=== PATIENT | female | born 1940 | race Caucasian/White ===

== ENCOUNTER 2022-03-25 16:42 | Emergency (ER) | payer MEDICARE, OTHER ==
[2022-03-25 17:24] VITALS: BP 153/53; PULSE 90
[2022-03-25] MEDS ORDERED: Sodium Chloride 0.9% 500 ML IV SCH (18:45)
[2022-03-25] MEDS: cefTRIAXone 1 GM Vial IVPUSH ONE (18:50)
[2022-03-25] MEDS: Sodium Chloride 0.9% 1,000 ML IV SCH (18:53)
== END 2022-03-25 20:10 | disposition home or self-care (01) ==
LOC: CC.ED 16:42
DX: N39.0 Urinary tract infection, site not specified (principal); E78.00 Pure hypercholesterolemia, unspecified; E11.9 Type 2 diabetes mellitus without complications; E03.9 Hypothyroidism, unspecified; E66.9 Obesity, unspecified; Z68.24 Body mass index [BMI] 24.0-24.9, adult; Z79.82 Long term (current) use of aspirin; Z79.899 Other long term (current) drug therapy; Z79.84 Long term (current) use of oral hypoglycemic drugs
CPT/HCPCS: 36415; 71046; 80053; 81001; 85025; 87086; 87088; 87186; 96374; 99283; J0696; J7030; 99284

== ENCOUNTER 2023-06-17 10:23 | Emergency (ER) | payer MEDICARE, OTHER ==
[2023-06-17 10:27] VITALS: BP 98/48; PULSE 95
[2023-06-17] MEDS: Acetaminophen 325 MG Tab PO ONE (10:43)
== END 2023-06-17 11:06 | disposition home or self-care (01) ==
LOC: CC.ED 10:23
DX: S83.91XA Sprain of unspecified site of right knee, initial encounter (principal); S80.01XA Contusion of right knee, initial encounter; E78.00 Pure hypercholesterolemia, unspecified; E66.9 Obesity, unspecified; E03.9 Hypothyroidism, unspecified; E11.9 Type 2 diabetes mellitus without complications; Z68.31 Body mass index [BMI] 31.0-31.9, adult; Z79.899 Other long term (current) drug therapy; Z79.82 Long term (current) use of aspirin; Z79.84 Long term (current) use of oral hypoglycemic drugs; X58.XXXA Exposure to other specified factors, initial encounter
CPT/HCPCS: 73562-RT; 99283; 99284; A9270-GY

== ENCOUNTER 2024-07-26 11:42 | Inpatient (IN) | payer MEDICARE, OTHER ==
[2024-07-26 12:26] LABS: BASOPHILS ABSOLUTE AUTO 0.02 10^3/uL (0.00-0.50); BASOPHILS PERCENT AUTO 0.1 % (0-1); EOSINOPHILS ABSOLUTE AUTO 0.03 10^3/uL (0.00-1.50); EOSINOPHILS PERCENT AUTO 0.2 % (0-6); HEMATOCRIT 33.1 % (37.0-47.0); IMMATURE GRAN ABSOLUTE AUTO 0.03 10^3/uL (0.00-0.49); IMMATURE GRAN PERCENT AUTO 0.2 % (0.0-4.9); LYMPHOCYTES ABSOLUTE AUTO 0.67 10^3/uL (0.60-5.00); LYMPHOCYTES PERCENT AUTO 4.9 % (24-44); MEAN CORPUSCULAR HEMOGLOBIN 31.1 pg (27.0-32.0); MEAN CORPUSCULAR HGB CONC 33.2 g/dL (32.0-36.0); MEAN CORPUSCULAR VOLUME 93.5 fL (83.0-97.0); MONOCYTES ABSOLUTE AUTO 1.32 10^3/uL (0.00-1.50); MONOCYTES PERCENT AUTO 9.6 % (0-10); NEUTROPHILS ABSOLUTE AUTO 11.73 x10^3/uL (1.80-8.00); PLATELET COUNT,PLT 239 10^3/uL (150-400); RED BLOOD CELL COUNT 3.54 x10^6/uL (4.00-5.50); WHITE BLOOD CELL COUNT,WBC 13.8 10^3/uL (4.0-11.0)
[2024-07-26] MEDS: Sodium Chloride 0.9% 1,000 ML IV ONE ×2 (12:34→14:49)
[2024-07-26 12:38] LABS: ALBUMIN 3.3 g/dL (3.4-5.0); CALCIUM 9.7 mg/dL (8.4-10.1); CREATININE 1.9 mg/dL (0.6-1.0); EST CRCL DRUG DOSING (CG) 19.13 mL/min; POTASSIUM,K 4.6 mEq/L (3.5-5.0); PROTEIN TOTAL,TP 7.5 g/dL (6.4-8.2)
[2024-07-26 12:49] LABS: BASE EXCESS VENOUS -2.5; O2 DELIVERY DEVICE ROOM AIR; PCO2 VENOUS 34.1; PH,VENOUS 7.42 (7.36-7.41); PO2 VENOUS 20.9
[2024-07-26 13:23] LABS: APPEARANCE,URINE CLOUDY (CLEAR); BILIRUBIN,URINE NEGATIVE (NEGATIVE); COLOR,URINE YELLOW (YELLOW); GLUCOSE,URINE NEGATIVE (NEGATIVE); KETONES,URINE NEGATIVE (NEGATIVE); LEUKOCYTE ESTERASE,URINE LARGE (NEGATIVE); NITRITE,URINE POSITIVE (NEGATIVE); OCCULT BLOOD,URINE MODERATE (NEGATIVE); PH,URINE 5.5 (4.5-8.0); PROTEIN,URINE 100 mg/dL (NEGATIVE); UROBILINOGEN,URINE 0.2 EU/dL (0.2-1.0)
[2024-07-26 13:28] LABS: BACTERIA,URINE FEW /HPF (NOT SEEN); EPITHELIAL CELLS,URINE FEW /HPF (NOT SEEN); MUCUS,URINE NOT SEEN /HPF (NOT SEEN); WBC,URINE >100 /HPF (0-5)
[2024-07-26] MEDS ORDERED: Polyethylene Glycol 3350 Powder 17 GM Packet PO PRN (14:35)
[2024-07-26] MEDS ORDERED: Ondansetron 4 MG/2 ML SDV IV PRN (14:35)
[2024-07-26] MEDS ORDERED: Fluticasone NASAL Spray 16 GM Bottle NASBOTH PRN (14:35)
[2024-07-26] MEDS ORDERED: Ondansetron 4 MG Tab.DIS PO PRN (14:35)
[2024-07-26] MEDS ORDERED: Loperamide 2 MG Cap PO PRN (14:35)
[2024-07-26] MEDS ORDERED: Docusate Sodium 100 MG Cap PO PRN (14:35)
[2024-07-26] MEDS: cefTRIAXone 1 GM Vial IVPUSH SCH (14:47)
[2024-07-26] MEDS: Acetaminophen 325 MG Tab PO PRN (19:28)
[2024-07-26] MEDS: Cranberry 500 MG Cap PO SCH (19:29)
[2024-07-26] MEDS: Simvastatin 40 MG Tab PO SCH (19:29)
[2024-07-26] MEDS: Beta-Carotene (Vitamin A) w/Vitamin C & E plus Minerals Tab PO SCH (19:29)
[2024-07-26] MEDS: glipiZIDE 5 MG Tab.ER PO SCH (19:30)
[2024-07-27] MEDS: Levothyroxine 150 MCG Tab PO SCH (06:08)
[2024-07-27] MEDS: Aspirin 81 MG Tab.EC PO SCH (07:33)
[2024-07-27 07:41] LABS: BASOPHILS ABSOLUTE AUTO 0.03 10^3/uL (0.00-0.50); BASOPHILS PERCENT AUTO 0.3 % (0-1); EOSINOPHILS ABSOLUTE AUTO 0.06 10^3/uL (0.00-1.50); EOSINOPHILS PERCENT AUTO 0.6 % (0-6); HEMATOCRIT 31.3 % (37.0-47.0); HEMOGLOBIN 10.3 g/dL (12.0-16.0); IMMATURE GRAN ABSOLUTE AUTO 0.03 10^3/uL (0.00-0.49); IMMATURE GRAN PERCENT AUTO 0.3 % (0.0-4.9); LYMPHOCYTES PERCENT AUTO 8.1 % (24-44); MEAN CORPUSCULAR HEMOGLOBIN 31.1 pg (27.0-32.0); MEAN CORPUSCULAR HGB CONC 32.9 g/dL (32.0-36.0); MEAN CORPUSCULAR VOLUME 94.6 fL (83.0-97.0); MONOCYTES ABSOLUTE AUTO 1.03 10^3/uL (0.00-1.50); MONOCYTES PERCENT AUTO 10.5 % (0-10); NEUTROPHILS PERCENT AUTO 80.2 % (41-71); PLATELET COUNT,PLT 197 10^3/uL (150-400); RED BLOOD CELL COUNT 3.31 x10^6/uL (4.00-5.50); WHITE BLOOD CELL COUNT,WBC 9.9 10^3/uL (4.0-11.0)
[2024-07-27 07:44] LABS: CREATININE 1.6 mg/dL (0.6-1.0); EST CRCL DRUG DOSING (CG) 22.71 mL/min; MAGNESIUM 1.9 mg/dL (1.8-2.4); POTASSIUM,K 3.8 mEq/L (3.5-5.0)
[2024-07-27] MEDS: metFORMIN 500 MG Tab PO SCH (11:51)
[2024-07-27] MEDS: Calcium Carbonate/Vitamin D3 1250 MG-5 MCG Tab PO SCH (11:51)
[2024-07-27] MEDS: Piperacillin/Tazobactam 4.5 GM in Sodium Chloride 0.9% 100 ML IV SCH (19:36)
[2024-07-27] MEDS: Enoxaparin 30 MG/0.3 ML Syringe SUBCUT SCH (19:52)
[2024-07-28 07:39] LABS: BASOPHILS ABSOLUTE AUTO 0.04 10^3/uL (0.00-0.50); BASOPHILS PERCENT AUTO 0.5 % (0-1); EOSINOPHILS PERCENT AUTO 2.6 % (0-6); HEMATOCRIT 29.1 % (37.0-47.0); HEMOGLOBIN 9.8 g/dL (12.0-16.0); IMMATURE GRAN ABSOLUTE AUTO 0.06 10^3/uL (0.00-0.49); IMMATURE GRAN PERCENT AUTO 0.8 % (0.0-4.9); LYMPHOCYTES ABSOLUTE AUTO 0.77 10^3/uL (0.60-5.00); MEAN CORPUSCULAR HGB CONC 33.7 g/dL (32.0-36.0); MEAN CORPUSCULAR VOLUME 92.1 fL (83.0-97.0); MONOCYTES ABSOLUTE AUTO 0.96 10^3/uL (0.00-1.50); MONOCYTES PERCENT AUTO 12.5 % (0-10); NEUTROPHILS ABSOLUTE AUTO 5.65 x10^3/uL (1.80-8.00); NEUTROPHILS PERCENT AUTO 73.6 % (41-71); PLATELET COUNT,PLT 229 10^3/uL (150-400); RED BLOOD CELL COUNT 3.16 x10^6/uL (4.00-5.50); WHITE BLOOD CELL COUNT,WBC 7.7 10^3/uL (4.0-11.0)
[2024-07-28 07:48] LABS: CALCIUM 9.2 mg/dL (8.4-10.1); CREATININE 1.6 mg/dL (0.6-1.0); EST CRCL DRUG DOSING (CG) 22.71 mL/min; MAGNESIUM 1.7 mg/dL (1.8-2.4); POTASSIUM,K 3.6 mEq/L (3.5-5.0)
[2024-07-29 07:18] LABS: BASOPHILS ABSOLUTE AUTO 0.06 10^3/uL (0.00-0.50); BASOPHILS PERCENT AUTO 0.7 % (0-1); EOSINOPHILS ABSOLUTE AUTO 0.27 10^3/uL (0.00-1.50); EOSINOPHILS PERCENT AUTO 3.2 % (0-6); HEMATOCRIT 29.1 % (37.0-47.0); HEMOGLOBIN 9.8 g/dL (12.0-16.0); IMMATURE GRAN ABSOLUTE AUTO 0.07 10^3/uL (0.00-0.49); IMMATURE GRAN PERCENT AUTO 0.8 % (0.0-4.9); LYMPHOCYTES ABSOLUTE AUTO 1.04 10^3/uL (0.60-5.00); LYMPHOCYTES PERCENT AUTO 12.3 % (24-44); MEAN CORPUSCULAR HEMOGLOBIN 30.7 pg (27.0-32.0); MEAN CORPUSCULAR HGB CONC 33.7 g/dL (32.0-36.0); MEAN CORPUSCULAR VOLUME 91.2 fL (83.0-97.0); MONOCYTES ABSOLUTE AUTO 1.08 10^3/uL (0.00-1.50); MONOCYTES PERCENT AUTO 12.8 % (0-10); NEUTROPHILS ABSOLUTE AUTO 5.91 x10^3/uL (1.80-8.00); NEUTROPHILS PERCENT AUTO 70.2 % (41-71); PLATELET COUNT,PLT 246 10^3/uL (150-400); RED BLOOD CELL COUNT 3.19 x10^6/uL (4.00-5.50); WHITE BLOOD CELL COUNT,WBC 8.4 10^3/uL (4.0-11.0)
[2024-07-29 07:57] LABS: CALCIUM 9.6 mg/dL (8.4-10.1); CREATININE 1.5 mg/dL (0.6-1.0); EST CRCL DRUG DOSING (CG) 24.23 mL/min; MAGNESIUM 1.6 mg/dL (1.8-2.4); POTASSIUM,K 3.6 mEq/L (3.5-5.0)
[2024-07-29 12:37] VITALS: BP 140/61; PULSE 87
== END 2024-07-29 13:16 | disposition swing bed (61) | DRG 683 ==
LOC: CC.ED 11:42 → CC.MS 13:47 → UNDOADMIN 14:11
PROVIDERS: ADMIT Nurse Practitioner; ATTEND Nurse Practitioner
DX: N17.9 Acute kidney failure, unspecified (principal); E87.20 Acidosis, unspecified; D72.9 Disorder of white blood cells, unspecified; N39.0 Urinary tract infection, site not specified; E11.9 Type 2 diabetes mellitus without complications; D72.829 Elevated white blood cell count, unspecified; B96.89 Other specified bacterial agents as the cause of diseases classified elsewhere; E78.00 Pure hypercholesterolemia, unspecified; E66.9 Obesity, unspecified; E03.9 Hypothyroidism, unspecified; D64.9 Anemia, unspecified; K59.09 Other constipation; G89.29 Other chronic pain; M54.9 Dorsalgia, unspecified; R35.0 Frequency of micturition; Z79.84 Long term (current) use of oral hypoglycemic drugs; Z79.82 Long term (current) use of aspirin; Z79.899 Other long term (current) drug therapy; Z79.890 Hormone replacement therapy; Z86.010 Personal history of colon polyps
CPT/HCPCS: 36415; 71045; 80048; 80053; 81001; 82803; 82947; 83605; 83735; 85025; 87040; 87086; 87088; 87186; 87804; 96360; 99223; 99232; 99233; 99238; 99284-25; A9270-GY; J0696; J1650; J2543; J3490; J7030; U0002

== ENCOUNTER 2024-07-29 13:24 | Inpatient (IN) | payer MEDICARE, OTHER ==
[2024-07-29] MEDS ORDERED: Acetaminophen 325 MG Tab PO PRN (13:41)
[2024-07-29] MEDS ORDERED: Fluticasone NASAL Spray 16 GM Bottle NASBOTH PRN (13:41)
[2024-07-29] MEDS ORDERED: Loperamide 2 MG Cap PO PRN (13:41)
[2024-07-29] MEDS ORDERED: Ondansetron 4 MG Tab.DIS PO PRN (13:41)
[2024-07-29] MEDS ORDERED: Ondansetron 4 MG/2 ML SDV IV PRN (13:41)
[2024-07-29] MEDS: Magnesium Chloride 64 MG Tab.ER PO SCH (16:39)
[2024-07-29] MEDS: Amoxicillin/Clavulanate K 500-125 MG Tab PO SCH (19:26)
[2024-07-29] MEDS: Simvastatin 40 MG Tab PO SCH (19:26)
[2024-07-29] MEDS: Enoxaparin 30 MG/0.3 ML Syringe SUBCUT SCH (19:26)
[2024-07-29] MEDS: Cranberry 500 MG Cap PO SCH (19:26)
[2024-07-29] MEDS: Beta-Carotene (Vitamin A) w/Vitamin C & E plus Minerals Tab PO SCH (19:26)
[2024-07-29] MEDS: glipiZIDE 5 MG Tab.ER PO SCH (19:26)
[2024-07-30] MEDS: Levothyroxine 150 MCG Tab PO SCH (06:44)
[2024-07-30] MEDS: Aspirin 81 MG Tab.EC PO SCH (07:32)
[2024-07-30] MEDS: metFORMIN 500 MG Tab PO SCH (12:02)
[2024-07-30] MEDS: Calcium Carbonate/Vitamin D3 1250 MG-5 MCG Tab PO SCH (12:02)
[2024-07-30] MEDS: Polyethylene Glycol 3350 Powder 17 GM Packet PO PRN (20:06)
[2024-07-31 08:25] LABS: APPEARANCE,URINE CLEAR (CLEAR); BILIRUBIN,URINE NEGATIVE (NEGATIVE); COLOR,URINE YELLOW (YELLOW); GLUCOSE,URINE NEGATIVE (NEGATIVE); KETONES,URINE NEGATIVE (NEGATIVE); LEUKOCYTE ESTERASE,URINE NEGATIVE (NEGATIVE); NITRITE,URINE NEGATIVE (NEGATIVE); OCCULT BLOOD,URINE NEGATIVE (NEGATIVE); PROTEIN,URINE NEGATIVE (NEGATIVE); UROBILINOGEN,URINE 0.2 EU/dL (0.2-1.0)
[2024-07-31] MEDS: Docusate Sodium 100 MG Cap PO PRN (11:52)
[2024-08-01] MEDS: Polyethylene Glycol 3350 Powder 17 GM Packet PO SCH (07:43)
[2024-08-01] MEDS: Bisacodyl 10 MG Supp RECTAL ONE (15:08)
[2024-08-02 07:51] VITALS: BP 150/64; PULSE 87
== END 2024-08-02 14:56 | disposition home health service (06) | DRG 948 ==
LOC: CC.MS 13:24 → UNDOADMIN 13:24 → CC.MS 13:41
PROVIDERS: ADMIT Nurse Practitioner; ATTEND Nurse Practitioner
DX: R53.1 Weakness (principal); N39.0 Urinary tract infection, site not specified; E87.20 Acidosis, unspecified; N17.9 Acute kidney failure, unspecified; D72.9 Disorder of white blood cells, unspecified; B96.89 Other specified bacterial agents as the cause of diseases classified elsewhere; Z79.82 Long term (current) use of aspirin; Z79.84 Long term (current) use of oral hypoglycemic drugs; Z79.899 Other long term (current) drug therapy; Z79.890 Hormone replacement therapy
CPT/HCPCS: 81003; 82947; 97110-GP; 97530-GP; 99316; A9270-GY; J1650

== ENCOUNTER 2024-12-29 09:13 | Inpatient (IN) | payer MEDICARE, OTHER ==
[2024-12-29 09:49] LABS: BASOPHILS ABSOLUTE AUTO 0.04 10^3/uL (0.00-0.50); BASOPHILS PERCENT AUTO 0.3 % (0-1); EOSINOPHILS ABSOLUTE AUTO 0.18 10^3/uL (0.00-1.50); EOSINOPHILS PERCENT AUTO 1.6 % (0-6); HEMATOCRIT 31.6 % (37.0-47.0); HEMOGLOBIN 10.4 g/dL (12.0-16.0); IMMATURE GRAN ABSOLUTE AUTO 0.08 10^3/uL (0.00-0.49); IMMATURE GRAN PERCENT AUTO 0.7 % (0.0-4.9); LYMPHOCYTES PERCENT AUTO 11.3 % (24-44); MEAN CORPUSCULAR HEMOGLOBIN 30.5 pg (27.0-32.0); MEAN CORPUSCULAR HGB CONC 32.9 g/dL (32.0-36.0); MEAN CORPUSCULAR VOLUME 92.7 fL (83.0-97.0); MONOCYTES ABSOLUTE AUTO 1.03 10^3/uL (0.00-1.50); MONOCYTES PERCENT AUTO 8.9 % (0-10); NEUTROPHILS ABSOLUTE AUTO 8.92 x10^3/uL (1.80-8.00); NEUTROPHILS PERCENT AUTO 77.2 % (41-71); PLATELET COUNT,PLT 326 10^3/uL (150-400); RED BLOOD CELL COUNT 3.41 x10^6/uL (4.00-5.50); WHITE BLOOD CELL COUNT,WBC 11.6 10^3/uL (4.0-11.0)
[2024-12-29 10:03] LABS: ALBUMIN 3.3 g/dL (3.4-5.0); BILIRUBIN TOTAL 0.7 mg/dL (0.0-1.0); CALCIUM 9.6 mg/dL (8.4-10.1); EST CRCL DRUG DOSING (CG) 19.27 mL/min; POTASSIUM,K 5.1 mEq/L (3.5-5.0); PROTEIN TOTAL,TP 7.4 g/dL (6.4-8.2)
[2024-12-29 10:26] LABS: INR 1.07 (0.92-1.18); PROTHROMBIN TIME 11.2 SEC (9.3-11.3); PTT,PARTIAL THROMBOPLSTIN TIME 25.9 SEC (20.0-30.0)
[2024-12-29] MEDS ORDERED: Acetaminophen 325 MG Tab PO PRN (10:49)
[2024-12-29] MEDS ORDERED: Polyethylene Glycol 3350 Powder 17 GM Packet PO PRN (10:49)
[2024-12-29] MEDS ORDERED: Ondansetron 4 MG/2 ML SDV IV PRN (10:49)
[2024-12-29] MEDS ORDERED: Ondansetron 4 MG Tab.DIS PO PRN (10:49)
[2024-12-29] MEDS: Sodium Chloride 0.9% 1,000 ML IV SCH (11:06)
[2024-12-29] MEDS: Calcium Carbonate/Vitamin D3 1250 MG-5 MCG Tab PO SCH (11:58)
[2024-12-29] MEDS: metFORMIN 500 MG Tab PO SCH (11:58)
[2024-12-29 13:28] LABS: APPEARANCE,URINE CLOUDY (CLEAR); BILIRUBIN,URINE NEGATIVE (NEGATIVE); COLOR,URINE YELLOW (YELLOW); GLUCOSE,URINE NEGATIVE (NEGATIVE); KETONES,URINE NEGATIVE (NEGATIVE); LEUKOCYTE ESTERASE,URINE SMALL (NEGATIVE); NITRITE,URINE POSITIVE (NEGATIVE); OCCULT BLOOD,URINE TRACE-INTACT (NEGATIVE); PH,URINE 5.5 (4.5-8.0); PROTEIN,URINE 30 mg/dL (NEGATIVE); UROBILINOGEN,URINE 0.2 EU/dL (0.2-1.0)
[2024-12-29 13:34] LABS: BACTERIA,URINE MANY /HPF (NOT SEEN); WBC,URINE >100 /HPF (0-5)
[2024-12-29] MEDS: cefTRIAXone 1 GM Vial IVPUSH SCH (13:58)
[2024-12-29] MEDS: Magnesium Oxide 400 MG Tab PO SCH (17:23)
[2024-12-29] MEDS: Simvastatin 40 MG Tab PO SCH (19:19)
[2024-12-29] MEDS: glipiZIDE 5 MG Tab.ER PO SCH (19:19)
[2024-12-29] MEDS: Docusate Sodium 100 MG Cap PO SCH (19:19)
[2024-12-30] MEDS: Levothyroxine 50 MCG Tab PO SCH (06:51)
[2024-12-30 07:36] LABS: BASOPHILS ABSOLUTE AUTO 0.05 10^3/uL (0.00-0.50); BASOPHILS PERCENT AUTO 0.5 % (0-1); EOSINOPHILS PERCENT AUTO 3.1 % (0-6); HEMATOCRIT 28.5 % (37.0-47.0); HEMOGLOBIN 9.4 g/dL (12.0-16.0); IMMATURE GRAN ABSOLUTE AUTO 0.02 10^3/uL (0.00-0.49); IMMATURE GRAN PERCENT AUTO 0.2 % (0.0-4.9); LYMPHOCYTES ABSOLUTE AUTO 1.48 10^3/uL (0.60-5.00); LYMPHOCYTES PERCENT AUTO 15.1 % (24-44); MEAN CORPUSCULAR HEMOGLOBIN 30.4 pg (27.0-32.0); MEAN CORPUSCULAR VOLUME 92.2 fL (83.0-97.0); MONOCYTES ABSOLUTE AUTO 0.95 10^3/uL (0.00-1.50); MONOCYTES PERCENT AUTO 9.7 % (0-10); NEUTROPHILS ABSOLUTE AUTO 7.01 x10^3/uL (1.80-8.00); NEUTROPHILS PERCENT AUTO 71.4 % (41-71); PLATELET COUNT,PLT 321 10^3/uL (150-400); RED BLOOD CELL COUNT 3.09 x10^6/uL (4.00-5.50); WHITE BLOOD CELL COUNT,WBC 9.8 10^3/uL (4.0-11.0)
[2024-12-30] MEDS: Multivitamins with Iron/Calcium/Folic Acid/Minerals Tab PO SCH (07:36)
[2024-12-30] MEDS: Aspirin 81 MG Tab.EC PO SCH (07:36)
[2024-12-30] MEDS: Cholecalciferol (Vitamin D3) 5,000 UNIT Tab PO SCH (07:36)
[2024-12-30] MEDS: Lactobacillus Rhamnosus GG (Probiotic) Cap PO SCH (07:36)
[2024-12-30 07:47] LABS: ALBUMIN 2.7 g/dL (3.4-5.0); BILIRUBIN TOTAL 0.4 mg/dL (0.0-1.0); C-REACTIVE PROTEIN 7.62 mg/dL (<=0.50); CALCIUM 8.7 mg/dL (8.4-10.1); CREATININE 1.6 mg/dL (0.6-1.0); EST CRCL DRUG DOSING (CG) 24.08 mL/min; POTASSIUM,K 4.4 mEq/L (3.5-5.0); PROTEIN TOTAL,TP 6.5 g/dL (6.4-8.2)
[2024-12-30] MEDS: Enoxaparin 30 MG/0.3 ML Syringe SUBCUT SCH (19:36)
[2024-12-31 07:48] LABS: BASOPHILS ABSOLUTE AUTO 0.06 10^3/uL (0.00-0.50); BASOPHILS PERCENT AUTO 0.7 % (0-1); EOSINOPHILS ABSOLUTE AUTO 0.43 10^3/uL (0.00-1.50); HEMATOCRIT 28.4 % (37.0-47.0); HEMOGLOBIN 9.2 g/dL (12.0-16.0); IMMATURE GRAN ABSOLUTE AUTO 0.02 10^3/uL (0.00-0.49); IMMATURE GRAN PERCENT AUTO 0.2 % (0.0-4.9); LYMPHOCYTES ABSOLUTE AUTO 1.46 10^3/uL (0.60-5.00); LYMPHOCYTES PERCENT AUTO 17.1 % (24-44); MEAN CORPUSCULAR HEMOGLOBIN 30.2 pg (27.0-32.0); MEAN CORPUSCULAR HGB CONC 32.4 g/dL (32.0-36.0); MEAN CORPUSCULAR VOLUME 93.1 fL (83.0-97.0); MONOCYTES PERCENT AUTO 9.3 % (0-10); NEUTROPHILS ABSOLUTE AUTO 5.79 x10^3/uL (1.80-8.00); NEUTROPHILS PERCENT AUTO 67.7 % (41-71); PLATELET COUNT,PLT 311 10^3/uL (150-400); RED BLOOD CELL COUNT 3.05 x10^6/uL (4.00-5.50); WHITE BLOOD CELL COUNT,WBC 8.6 10^3/uL (4.0-11.0)
[2024-12-31 08:07] LABS: ALBUMIN 2.6 g/dL (3.4-5.0); BILIRUBIN TOTAL 0.4 mg/dL (0.0-1.0); C-REACTIVE PROTEIN 8.42 mg/dL (<=0.50); CALCIUM 8.5 mg/dL (8.4-10.1); CREATININE 1.6 mg/dL (0.6-1.0); EST CRCL DRUG DOSING (CG) 24.08 mL/min; POTASSIUM,K 4.1 mEq/L (3.5-5.0); PROTEIN TOTAL,TP 6.5 g/dL (6.4-8.2)
[2025-01-01 08:02] LABS: BASOPHILS ABSOLUTE AUTO 0.05 10^3/uL (0.00-0.50); BASOPHILS PERCENT AUTO 0.6 % (0-1); EOSINOPHILS ABSOLUTE AUTO 0.43 10^3/uL (0.00-1.50); EOSINOPHILS PERCENT AUTO 5.3 % (0-6); HEMATOCRIT 27.6 % (37.0-47.0); HEMOGLOBIN 8.9 g/dL (12.0-16.0); IMMATURE GRAN ABSOLUTE AUTO 0.03 10^3/uL (0.00-0.49); IMMATURE GRAN PERCENT AUTO 0.4 % (0.0-4.9); LYMPHOCYTES ABSOLUTE AUTO 1.36 10^3/uL (0.60-5.00); LYMPHOCYTES PERCENT AUTO 16.9 % (24-44); MEAN CORPUSCULAR HEMOGLOBIN 30.3 pg (27.0-32.0); MEAN CORPUSCULAR HGB CONC 32.2 g/dL (32.0-36.0); MEAN CORPUSCULAR VOLUME 93.9 fL (83.0-97.0); MONOCYTES PERCENT AUTO 8.7 % (0-10); NEUTROPHILS ABSOLUTE AUTO 5.47 x10^3/uL (1.80-8.00); NEUTROPHILS PERCENT AUTO 68.1 % (41-71); PLATELET COUNT,PLT 319 10^3/uL (150-400); RED BLOOD CELL COUNT 2.94 x10^6/uL (4.00-5.50)
[2025-01-01 08:20] LABS: ALBUMIN 2.7 g/dL (3.4-5.0); BILIRUBIN TOTAL 0.3 mg/dL (0.0-1.0); C-REACTIVE PROTEIN 7.24 mg/dL (<=0.50); CALCIUM 8.8 mg/dL (8.4-10.1); CREATININE 1.5 mg/dL (0.6-1.0); EST CRCL DRUG DOSING (CG) 25.69 mL/min; POTASSIUM,K 4.4 mEq/L (3.5-5.0); PROTEIN TOTAL,TP 6.8 g/dL (6.4-8.2)
[2025-01-01] MEDS: cefTRIAXone 1 GM Vial IVPUSH SCH (11:06)
[2025-01-01 13:15] VITALS: BP 119/59; PULSE 83
== END 2025-01-01 12:30 | disposition home or self-care (01) | DRG 683 ==
LOC: CC.ED 09:13 → CC.MS 10:27 → UNDOADMOB 10:30 → CC.MS 10:30 → OBSVTOIN 12-30 08:08
PROVIDERS: ADMIT Physician Assistant Medical; ATTEND Nurse Practitioner Family
DX: N17.9 Acute kidney failure, unspecified (principal); N30.01 Acute cystitis with hematuria; R53.1 Weakness; E78.00 Pure hypercholesterolemia, unspecified; K59.09 Other constipation; G89.29 Other chronic pain; M54.9 Dorsalgia, unspecified; E11.9 Type 2 diabetes mellitus without complications; E03.9 Hypothyroidism, unspecified; Z79.890 Hormone replacement therapy; R41.0 Disorientation, unspecified; E86.0 Dehydration; Z68.23 Body mass index [BMI] 23.0-23.9, adult; F15.90 Other stimulant use, unspecified, uncomplicated; E66.9 Obesity, unspecified; D64.9 Anemia, unspecified; Z79.1 Long term (current) use of non-steroidal anti-inflammatories (NSAID); Z79.82 Long term (current) use of aspirin; Z79.899 Other long term (current) drug therapy; Z79.02 Long term (current) use of antithrombotics/antiplatelets; Z79.84 Long term (current) use of oral hypoglycemic drugs; Z87.81 Personal history of (healed) traumatic fracture; Z98.890 Other specified postprocedural states; Z87.891 Personal history of nicotine dependence
CPT/HCPCS: 36415; 70450; 80053; 81001; 85025; 85610; 85730; 86140; 87086; 87088; 87186; 93005; 93010; 96361; 96372; 96374; 96376; 97110-GP; 97161-GP; 99223; 99233; 99238; 99284; 99285; A9270-GY; G0378; J0696; J1650; J7030

== ENCOUNTER 2025-03-13 14:27 | Inpatient (IN) | payer MEDICARE, OTHER ==
[2025-03-13] MEDS ORDERED: Ondansetron 4 MG/2 ML SDV IV PRN (15:18)
[2025-03-13] MEDS: Furosemide 40 MG/4 ML VIAL IVPUSH ONE (15:22)
[2025-03-13] MEDS: Heparin Sodium 5,000 Units/ML Vial SUBCUT SCH (15:43)
[2025-03-13] MEDS: cefTRIAXone 1 GM Vial IVPUSH SCH (15:45)
[2025-03-13] MEDS: diphenhydrAMINE 25 MG Cap PO SCH (19:49)
[2025-03-13] MEDS: Beta-Carotene (Vitamin A) w/Vitamin C & E plus Minerals Tab PO SCH (19:50)
[2025-03-13] MEDS: Acetaminophen 500 MG Tab PO SCH (19:50)
[2025-03-13] MEDS: Simvastatin 40 MG Tab PO SCH (19:50)
[2025-03-13] MEDS: Vitamin B Complex Cap PO SCH (19:50)
[2025-03-14] MEDS: Levothyroxine 50 MCG Tab PO SCH (06:26)
[2025-03-14 07:14] LABS: BASOPHILS ABSOLUTE AUTO 0.07 10^3/uL (0.00-0.50); BASOPHILS PERCENT AUTO 0.6 % (0-1); EOSINOPHILS ABSOLUTE AUTO 0.32 10^3/uL (0.00-1.50); EOSINOPHILS PERCENT AUTO 2.8 % (0-6); HEMATOCRIT 29.6 % (37.0-47.0); HEMOGLOBIN 9.7 g/dL (12.0-16.0); IMMATURE GRAN ABSOLUTE AUTO 0.03 10^3/uL (0.00-0.49); IMMATURE GRAN PERCENT AUTO 0.3 % (0.0-4.9); LYMPHOCYTES ABSOLUTE AUTO 0.91 10^3/uL (0.60-5.00); MEAN CORPUSCULAR HEMOGLOBIN 30.4 pg (27.0-32.0); MEAN CORPUSCULAR HGB CONC 32.8 g/dL (32.0-36.0); MEAN CORPUSCULAR VOLUME 92.8 fL (83.0-97.0); MONOCYTES ABSOLUTE AUTO 1.08 10^3/uL (0.00-1.50); MONOCYTES PERCENT AUTO 9.4 % (0-10); NEUTROPHILS ABSOLUTE AUTO 9.02 x10^3/uL (1.80-8.00); NEUTROPHILS PERCENT AUTO 78.9 % (41-71); PLATELET COUNT,PLT 354 10^3/uL (150-400); RED BLOOD CELL COUNT 3.19 x10^6/uL (4.00-5.50); WHITE BLOOD CELL COUNT,WBC 11.4 10^3/uL (4.0-11.0)
[2025-03-14] MEDS: Cholecalciferol (Vitamin D3) 5,000 UNIT Tab PO SCH (07:19)
[2025-03-14] MEDS: Aspirin 81 MG Tab.EC PO SCH (07:19)
[2025-03-14] MEDS: Cranberry 500 MG Cap PO SCH (07:19)
[2025-03-14] MEDS: glipiZIDE 5 MG Tab.ER PO SCH (07:19)
[2025-03-14] MEDS: Furosemide 40 MG/4 ML VIAL IVPUSH SCH (07:19)
[2025-03-14 07:26] LABS: CALCIUM 8.8 mg/dL (8.4-10.1); CREATININE 1.6 mg/dL (0.6-1.0); EST CRCL DRUG DOSING (CG) 22.29 mL/min; MAGNESIUM 2.1 mg/dL (1.8-2.4); POTASSIUM,K 4.1 mEq/L (3.5-5.0)
[2025-03-14] MEDS: Magnesium Oxide 400 MG Tab PO SCH (13:09)
[2025-03-14] MEDS: metFORMIN 500 MG Tab PO SCH (13:09)
[2025-03-14] MEDS: Calcium Carbonate/Vitamin D3 1250 MG-5 MCG Tab PO SCH (13:09)
[2025-03-14] MEDS: Hypromellose 0.3% Ophth Soln 15 ML Bottle EYEBOTH SCH (13:10)
[2025-03-14] MEDS: Acetaminophen 325 MG Tab PO PRN (14:29)
[2025-03-14] MEDS: Lidocaine 4% Patch TOP SCH (20:09)
[2025-03-15 07:40] LABS: ALBUMIN 3.1 g/dL (3.4-5.0); BILIRUBIN TOTAL 0.4 mg/dL (0.0-1.0); CALCIUM 8.6 mg/dL (8.4-10.1); CREATININE 1.7 mg/dL (0.6-1.0); EST CRCL DRUG DOSING (CG) 20.98 mL/min; MAGNESIUM 2.1 mg/dL (1.8-2.4); POTASSIUM,K 3.6 mEq/L (3.5-5.0); PROTEIN TOTAL,TP 6.8 g/dL (6.4-8.2)
[2025-03-15 07:44] LABS: BASOPHILS ABSOLUTE AUTO 0.09 10^3/uL (0.00-0.50); EOSINOPHILS ABSOLUTE AUTO 0.36 10^3/uL (0.00-1.50); EOSINOPHILS PERCENT AUTO 3.9 % (0-6); HEMATOCRIT 30.9 % (37.0-47.0); IMMATURE GRAN ABSOLUTE AUTO 0.01 10^3/uL (0.00-0.49); IMMATURE GRAN PERCENT AUTO 0.1 % (0.0-4.9); LYMPHOCYTES PERCENT AUTO 13.2 % (24-44); MEAN CORPUSCULAR HEMOGLOBIN 29.8 pg (27.0-32.0); MEAN CORPUSCULAR HGB CONC 32.4 g/dL (32.0-36.0); MONOCYTES ABSOLUTE AUTO 0.91 10^3/uL (0.00-1.50); NEUTROPHILS ABSOLUTE AUTO 6.55 x10^3/uL (1.80-8.00); NEUTROPHILS PERCENT AUTO 71.8 % (41-71); PLATELET COUNT,PLT 317 10^3/uL (150-400); RED BLOOD CELL COUNT 3.36 x10^6/uL (4.00-5.50); WHITE BLOOD CELL COUNT,WBC 9.1 10^3/uL (4.0-11.0)
[2025-03-15] MEDS: Docusate Sodium 100 MG Cap PO PRN (16:34)
[2025-03-16] MEDS: Polyethylene Glycol 3350 Powder 17 GM Packet PO PRN (11:43)
[2025-03-16 16:58] LABS: BASOPHILS ABSOLUTE AUTO 0.04 10^3/uL (0.00-0.50); BASOPHILS PERCENT AUTO 0.5 % (0-1); EOSINOPHILS ABSOLUTE AUTO 0.36 10^3/uL (0.00-1.50); EOSINOPHILS PERCENT AUTO 4.3 % (0-6); HEMATOCRIT 30.3 % (37.0-47.0); HEMOGLOBIN 9.9 g/dL (12.0-16.0); IMMATURE GRAN ABSOLUTE AUTO 0.02 10^3/uL (0.00-0.49); IMMATURE GRAN PERCENT AUTO 0.2 % (0.0-4.9); LYMPHOCYTES ABSOLUTE AUTO 1.12 10^3/uL (0.60-5.00); LYMPHOCYTES PERCENT AUTO 13.5 % (24-44); MEAN CORPUSCULAR HEMOGLOBIN 29.9 pg (27.0-32.0); MEAN CORPUSCULAR HGB CONC 32.7 g/dL (32.0-36.0); MEAN CORPUSCULAR VOLUME 91.5 fL (83.0-97.0); MONOCYTES ABSOLUTE AUTO 0.92 10^3/uL (0.00-1.50); MONOCYTES PERCENT AUTO 11.1 % (0-10); NEUTROPHILS ABSOLUTE AUTO 5.82 x10^3/uL (1.80-8.00); NEUTROPHILS PERCENT AUTO 70.4 % (41-71); PLATELET COUNT,PLT 366 10^3/uL (150-400); RED BLOOD CELL COUNT 3.31 x10^6/uL (4.00-5.50); WHITE BLOOD CELL COUNT,WBC 8.3 10^3/uL (4.0-11.0)
[2025-03-16 17:07] LABS: CALCIUM 9.2 mg/dL (8.4-10.1); CREATININE 1.8 mg/dL (0.6-1.0); EST CRCL DRUG DOSING (CG) 19.81 mL/min; POTASSIUM,K 3.6 mEq/L (3.5-5.0)
[2025-03-17] MEDS: Ondansetron 4 MG Tab.DIS PO PRN (07:50)
[2025-03-17 11:03] VITALS: BP 103/73; PULSE 105
== END 2025-03-17 12:04 | disposition swing bed (61) | DRG 292 ==
LOC: CC.MS 14:27 → UNDOADMIN 14:27 → CC.MS 15:18
PROVIDERS: ADMIT Nurse Practitioner; ATTEND Nurse Practitioner
DX: I13.0 Hypertensive heart and chronic kidney disease with heart failure and stage 1 through stage 4 chronic kidney disease, or unspecified chronic kidney disease (principal); N39.0 Urinary tract infection, site not specified; I50.9 Heart failure, unspecified; Z66 Do not resuscitate; N18.9 Chronic kidney disease, unspecified; E03.9 Hypothyroidism, unspecified; E11.22 Type 2 diabetes mellitus with diabetic chronic kidney disease; E78.00 Pure hypercholesterolemia, unspecified; I45.10 Unspecified right bundle-branch block; I44.0 Atrioventricular block, first degree; K59.09 Other constipation; K82.9 Disease of gallbladder, unspecified; E66.9 Obesity, unspecified; R31.9 Hematuria, unspecified; D72.0 Genetic anomalies of leukocytes; B96.20 Unspecified Escherichia coli [E. coli] as the cause of diseases classified elsewhere; Z88.8 Allergy status to other drugs, medicaments and biological substances; Z79.82 Long term (current) use of aspirin; Z79.84 Long term (current) use of oral hypoglycemic drugs; Z79.899 Other long term (current) drug therapy; Z86.0100 Personal history of colon polyps, unspecified; Z87.81 Personal history of (healed) traumatic fracture; Z98.890 Other specified postprocedural states
CPT/HCPCS: 29581; 36415; 80048; 80053; 83735; 84484; 85025; 93306; 97530-GP; 99223; 99232; 99233; 99238; A9270-GY; J0696; J1644; J1938

== ENCOUNTER 2025-03-17 12:24 | Inpatient (IN) | payer MEDICARE, OTHER ==
[2025-03-17] MEDS ORDERED: Docusate Sodium 100 MG Cap PO PRN (13:16)
[2025-03-17] MEDS: Polyethylene Glycol 3350 Powder 17 GM Packet PO PRN (15:34)
[2025-03-17] MEDS: Furosemide 40 MG Tab PO SCH (16:25)
[2025-03-17] MEDS: Hypromellose 0.3% Ophth Soln 15 ML Bottle EYEBOTH SCH (16:25)
[2025-03-17] MEDS: Heparin Sodium 5,000 Units/ML Vial SUBCUT SCH (16:26)
[2025-03-17] MEDS: cefTRIAXone 1 GM Vial IVPUSH SCH (16:49)
[2025-03-17] MEDS: Potassium Chloride 20 MEQ Tab.ER PO SCH (17:45)
[2025-03-17] MEDS: Lidocaine 4% Patch TOP SCH (19:36)
[2025-03-17] MEDS: Acetaminophen 500 MG Tab PO SCH (19:37)
[2025-03-17] MEDS: Vitamin B Complex Cap PO SCH (19:37)
[2025-03-17] MEDS: diphenhydrAMINE 25 MG Cap PO SCH (19:39)
[2025-03-17] MEDS: Simvastatin 40 MG Tab PO SCH (19:39)
[2025-03-17] MEDS: Beta-Carotene (Vitamin A) w/Vitamin C & E plus Minerals Tab PO SCH (19:40)
[2025-03-18] MEDS: Levothyroxine 50 MCG Tab PO SCH (07:26)
[2025-03-18] MEDS: Aspirin 81 MG Tab.EC PO SCH (07:27)
[2025-03-18] MEDS: Cholecalciferol (Vitamin D3) 5,000 UNIT Tab PO SCH (07:27)
[2025-03-18] MEDS: Cranberry 500 MG Cap PO SCH (07:27)
[2025-03-18] MEDS: glipiZIDE 5 MG Tab.ER PO SCH (07:28)
[2025-03-18] MEDS: Bisacodyl 10 MG Supp RECTAL ONE (12:37)
[2025-03-18] MEDS: Calcium Carbonate/Vitamin D3 1250 MG-5 MCG Tab PO SCH (12:37)
[2025-03-18] MEDS: Magnesium Oxide 400 MG Tab PO SCH (12:37)
[2025-03-18] MEDS: metFORMIN 500 MG Tab PO SCH (12:37)
[2025-03-19] MEDS: Ondansetron 4 MG Tab.DIS PO PRN (10:23)
[2025-03-20] MEDS: Ondansetron 4 MG/2 ML SDV IV PRN (08:29)
[2025-03-20] MEDS: Glucagon,Human Recombinant 1 MG Vial IVPUSH ONE (08:40)
[2025-03-20] MEDS: 50% Dextrose in Water 50 ML Syringe IVPUSH ONE (08:48)
[2025-03-20 10:00] LABS: BASOPHILS ABSOLUTE AUTO 0.03 10^3/uL (0.00-0.50); BASOPHILS PERCENT AUTO 0.4 % (0-1); HEMATOCRIT 29.4 % (37.0-47.0); HEMOGLOBIN 9.4 g/dL (12.0-16.0); IMMATURE GRAN ABSOLUTE AUTO 0.03 10^3/uL (0.00-0.49); IMMATURE GRAN PERCENT AUTO 0.4 % (0.0-4.9); LYMPHOCYTES ABSOLUTE AUTO 0.64 10^3/uL (0.60-5.00); LYMPHOCYTES PERCENT AUTO 8.8 % (24-44); MEAN CORPUSCULAR HEMOGLOBIN 29.7 pg (27.0-32.0); MONOCYTES ABSOLUTE AUTO 0.68 10^3/uL (0.00-1.50); MONOCYTES PERCENT AUTO 9.4 % (0-10); NEUTROPHILS ABSOLUTE AUTO 5.87 x10^3/uL (1.80-8.00); PLATELET COUNT,PLT 370 10^3/uL (150-400); RED BLOOD CELL COUNT 3.16 x10^6/uL (4.00-5.50); WHITE BLOOD CELL COUNT,WBC 7.3 10^3/uL (4.0-11.0)
[2025-03-20 10:18] LABS: ALBUMIN 3.3 g/dL (3.4-5.0); BILIRUBIN TOTAL 0.6 mg/dL (0.0-1.0); C-REACTIVE PROTEIN 3.38 mg/dL (<=0.50); CALCIUM 9.2 mg/dL (8.4-10.1); EST CRCL DRUG DOSING (CG) 12.74 mL/min; PROTEIN TOTAL,TP 6.9 g/dL (6.4-8.2)
[2025-03-20 10:47] LABS: CREATININE 2.8 mg/dL (0.6-1.0); POTASSIUM,K 6.4 mEq/L (3.5-5.0)
[2025-03-20] MEDS ORDERED: Sodium Chloride 0.9% 10 ML Syringe FLUSH PRN (11:08)
[2025-03-20 11:37] LABS: BASE EXCESS ARTERIAL -4.7 (-2.0-3.0); BICARBONATE,ARTERIAL 18.8 mm/L (22.0-26.0); O2 DELIVERY DEVICE NASAL CANNULA; O2 SATURATION ARTERIAL 96 % (95-98); PCO2 ARTERIAL 29 mm/Hg0 (35-45); PH,ARTERIAL 7.42 (7.35-7.45); PO2 ARTERIAL 77 mm/Hg (80-100)
[2025-03-20] MEDS: Sodium Chloride 0.9% 1,000 ML IV ONE (12:03)
[2025-03-20] MEDS: 50% Dextrose in Water 50 ML Syringe IV ONE (12:09)
[2025-03-20] MEDS: Insulin Regular, Human 100 Units/ML 10 ML Vial IVPUSH ONE (12:15)
[2025-03-20] MEDS: Acetaminophen 325 MG Tab PO PRN (14:00)
[2025-03-20] MEDS ORDERED: Tuberculin, PPD 5 Units/0.1 ML 1 ML MDV IDERM ONE (15:44)
[2025-03-20] MEDS: Tuberculin, PPD 5 Units/0.1 ML 1 ML MDV IDERM ONE (19:34)
[2025-03-21 07:36] LABS: BASOPHILS ABSOLUTE AUTO 0.03 10^3/uL (0.00-0.50); BASOPHILS PERCENT AUTO 0.4 % (0-1); EOSINOPHILS ABSOLUTE AUTO 0.03 10^3/uL (0.00-1.50); EOSINOPHILS PERCENT AUTO 0.4 % (0-6); HEMATOCRIT 28.2 % (37.0-47.0); HEMOGLOBIN 8.9 g/dL (12.0-16.0); IMMATURE GRAN ABSOLUTE AUTO 0.03 10^3/uL (0.00-0.49); IMMATURE GRAN PERCENT AUTO 0.4 % (0.0-4.9); LYMPHOCYTES ABSOLUTE AUTO 0.73 10^3/uL (0.60-5.00); LYMPHOCYTES PERCENT AUTO 8.9 % (24-44); MEAN CORPUSCULAR HEMOGLOBIN 29.4 pg (27.0-32.0); MEAN CORPUSCULAR HGB CONC 31.6 g/dL (32.0-36.0); MEAN CORPUSCULAR VOLUME 93.1 fL (83.0-97.0); MONOCYTES ABSOLUTE AUTO 0.87 10^3/uL (0.00-1.50); MONOCYTES PERCENT AUTO 10.6 % (0-10); NEUTROPHILS ABSOLUTE AUTO 6.55 x10^3/uL (1.80-8.00); NEUTROPHILS PERCENT AUTO 79.3 % (41-71); PLATELET COUNT,PLT 305 10^3/uL (150-400); RED BLOOD CELL COUNT 3.03 x10^6/uL (4.00-5.50); WHITE BLOOD CELL COUNT,WBC 8.2 10^3/uL (4.0-11.0)
[2025-03-21 07:51] VITALS: BP 102/51; PULSE 85
[2025-03-21 08:06] LABS: ALBUMIN 3.2 g/dL (3.4-5.0); BILIRUBIN TOTAL 0.5 mg/dL (0.0-1.0); C-REACTIVE PROTEIN 3.46 mg/dL (<=0.50); CALCIUM 8.9 mg/dL (8.4-10.1); EST CRCL DRUG DOSING (CG) 11.5 mL/min; POTASSIUM,K 5.8 mEq/L (3.5-5.0); PROTEIN TOTAL,TP 6.6 g/dL (6.4-8.2)
[2025-03-21 08:41] LABS: CREATININE 3.1 mg/dL (0.6-1.0)
[2025-03-21] MEDS ORDERED: 50% Dextrose in Water 50 ML Syringe IVPUSH PRN (09:21)
[2025-03-21] MEDS ORDERED: Glucagon,Human Recombinant 1 MG Vial IM PRN (09:21)
[2025-03-21] MEDS: Insulin Lispro 100 Units/ML 3 ML Vial SUBCUT SCH (12:00)
[2025-03-21] MEDS ORDERED: Haloperidol Lactate 2 MG/ML Oral Soln 15 ML Bottle PO PRN (14:06)
[2025-03-21] MEDS ORDERED: Morphine 2 MG/ML SYRINGE IVPUSH PRN (16:06)
[2025-03-21] MEDS: Morphine 2 MG/ML SYRINGE IVPUSH SCH (19:36)
== END 2025-03-24 11:00 | DRG 291 ==
LOC: CC.MS 12:24 → UNDOADMIN 12:24 → CC.MS 13:16 → UNDOADMIN 13:16
PROVIDERS: ADMIT Nurse Practitioner; ATTEND Nurse Practitioner
DX: I50.9 Heart failure, unspecified (principal); K72.00 Acute and subacute hepatic failure without coma; N17.9 Acute kidney failure, unspecified; N39.0 Urinary tract infection, site not specified; E87.5 Hyperkalemia; Z66 Do not resuscitate; K80.20 Calculus of gallbladder without cholecystitis without obstruction; R53.81 Other malaise; Z79.82 Long term (current) use of aspirin; Z79.899 Other long term (current) drug therapy; Z79.84 Long term (current) use of oral hypoglycemic drugs; Z51.5 Encounter for palliative care
CPT/HCPCS: 36415; 36600; 70450; 74176; 80053; 82803; 82947; 83880; 84132; 85025; 86140; 86580; 87426-QW; 93005; 97116-GP; 97139-GP; 97161-GP; 97597-GP; A9270-GY; J0696; J1644; J2270; J2405; J7030